=== PATIENT | female | born 1995 | race African-American/Black ===

== ENCOUNTER 2022-05-31 15:58 | Emergency (ER) | payer SELFPAY ==
[2022-05-31] MEDS ORDERED: Dexamethasone 10 MG/ML VIAL ONE (17:14)
[2022-05-31 18:03] LABS: SARS-CoV-2 NAA Rapid Test Not Detected (NotDetected)
== END 2022-05-31 18:32 | disposition home or self-care (01) ==
LOC: CSHERS 15:58
DX: J02.9 Acute pharyngitis, unspecified (principal); Z20.822 Contact with and (suspected) exposure to COVID-19
CPT/HCPCS: 87081; 87430; 99283; J1100

== ENCOUNTER 2023-02-11 11:52 | Day surgery (SDC) | payer OTHER, SELFPAY ==
[2023-02-11 13:23] VITALS: BMI 27.8
[2023-02-11] MEDS ORDERED: hydrALAZINE 20 MG/ML VIAL SLOW IVP PRN (13:59)
[2023-02-11 14:06] LABS: Bilirubin Neg (Negative); Blood, Urine 10 (Negative); Clarity Clear (Clear); Glucose, Urine (Dipstick) Normal (Negative); Ketone, Urine Negative (Negative); Leukocyte Negative (Negative); Nitrite Negative (Negative); Protein, Urine (Dipstick) Negative (Neg-Trace); Urobilinogen Normal mg/dL (Less than 2)
[2023-02-11] MEDS ORDERED: Ondansetron PF 4 MG/2 ML Vial IVP SCH (14:15)
[2023-02-11] MEDS ORDERED: Acetaminophen 500 MG TAB PO SCH ×2 (14:15→17:30)
[2023-02-11] MEDS ORDERED: Lactated Ringer's 1,000 ML IV SCH (14:15)
[2023-02-11 14:20] LABS: Amphetamine Not Detected (NotDetected); Barbiturates Screen Not Detected (NotDetected); Benzodiazepine Screen Not Detected (NotDetected); CAUTI Indications for Culture Pregnancy; Cocaine Metabolite Screen Not Detected (NotDetected); Methadone Not Detected (NotDetected); Methamphetamine Not Detected (NotDetected); Opiate Screen Not Detected (NotDetected); Oxycodone Screen Not Detected (NotDetected); Phencyclidine (PCP) Not Detected (NotDetected); RBC/HPF 0-3 HPF (0-3); Squamous Epithelial 0-3 HPF (0-3); THC/Cannabinoid Screen Not Detected (NotDetected); Tricyclic Screen Not Detected (NotDetected); WBC/HPF 0-3 HPF (0-3)
[2023-02-11 14:21] LABS: Bacteria/HPF Rare-Few HPF (None Seen)
[2023-02-11 14:23] LABS: Urine Culture Reflex Yes Yes
[2023-02-11 14:31] LABS: #Eosinphils 0.1 10x3/uL (0.0-0.5); #Neutrophils 4.1 10x3/uL (1.5-8.4); %Basophils 0.3 % (0.0-2.0); %Eosinophils 0.9 % (0.0-6.0); %Monocytes 17.1 % (0.0-10.0); Hemoglobin 12.1 g/dL (12.0-15.5); Mean Corpuscular Hemoglobin 30.8 pg (27.0-33.0); Mean Corpuscular Volume 90.6 fl (81.6-98.3); Mean Platelet Volume 10.5 fl (7.4-10.4); Platelet Count 153 10x3/uL (150-450); RBC Distribution Width 12.9 % (11.5-14.5); Red Blood Cell (RBC) Count 3.93 10x6/uL (3.90-5.03); White Blood Cell (WBC) Count 5.8 10x3/uL (3.5-10.5)
[2023-02-11 14:46] LABS: ALT (SGPT) 11 U/L (8-55); AST (SGOT) 15 U/L (5-34); Albumin 3.7 g/dL (3.5-5.0); Alkaline Phosphatase 56 U/L (40-110); Anion Gap 12 mmol/L (10-20); BUN (Urea Nitrogen) 4 mg/dL (7.0-18.7); Bilirubin, Total 0.4 mg/dL (0.2-1.2); Calc. Creatinine Clearance 144 mL/min (70-130); Calcium 8.8 mg/dL (7.8-10.44); Carbon Dioxide 22 mmol/L (22-29); Chloride 107 mmol/L (98-107); Estimated GFR 118; Globulin 2.7 g/dL (2.4-3.5); Glucose 79 mg/dL (70-105); Potassium 3.8 mmol/L (3.5-5.1); Protein, Total 6.4 g/dL (6.0-8.3); Sodium 137 mmol/L (136-145)
== END 2023-02-11 17:50 | disposition home or self-care (01) ==
LOC: CSHERS 11:52 → CSHLD/OP 12:49
PROVIDERS: ATTEND Obstetrics & Gynecology
DX: O23.42 Unspecified infection of urinary tract in pregnancy, second trimester (principal); N39.0 Urinary tract infection, site not specified; O99.282 Endocrine, nutritional and metabolic diseases complicating pregnancy, second trimester; E86.0 Dehydration; O99.891 Other specified diseases and conditions complicating pregnancy; R10.30 Lower abdominal pain, unspecified; Z3A.19 19 weeks gestation of pregnancy; Z79.82 Long term (current) use of aspirin; Z87.891 Personal history of nicotine dependence; Z91.041 Radiographic dye allergy status; Z91.018 Allergy to other foods
CPT/HCPCS: 76815; 80053; 80306; 81001; 85025; 87086; 87480; 87510; 87660; 96360; 96361; 96375; 99281; 99283; J2405

== ENCOUNTER 2023-05-13 19:27 | Day surgery (SDC) | payer OTHER ==
[2023-05-13] MEDS ORDERED: hydrALAZINE 20 MG/ML VIAL SLOW IVP PRN (20:26)
[2023-05-13] MEDS ORDERED: Ondansetron PF 4 MG/2 ML Vial IVP PRN (20:27)
[2023-05-13] MEDS ORDERED: Morphine 4 MG/ML VIAL SLOW IVP SCH ×2 (20:45→22:45)
[2023-05-13 20:48] VITALS: BMI 30.2
[2023-05-13 21:14] LABS: Bilirubin Neg (Negative); Blood, Urine 10 (Negative); Clarity Clear (Clear); Glucose, Urine (Dipstick) Normal (Negative); Ketone, Urine Negative (Negative); Leukocyte 25 (Negative); Nitrite Negative (Negative); Protein, Urine (Dipstick) 15 mg/dl (Neg-Trace); pH, Urine 6.5 (5.0-9.0)
[2023-05-13 21:19] LABS: #Eosinphils 0.2 10x3/uL (0.0-0.5); #Monocytes 0.8 10x3/uL (0.0-1.1); #Neutrophils 6.2 10x3/uL (1.5-8.4); %Basophils 0.2 % (0.0-2.0); %Eosinophils 1.8 % (0.0-6.0); %Monocytes 7.9 % (0.0-10.0); %Neutrophils 62.3 % (40.0-75.0); Hematocrit 35.3 % (34.9-44.5); Hemoglobin 12.1 g/dL (12.0-15.5); Mean Corpuscular HGB CONC 34.3 g/dL (32.0-36.0); Mean Corpuscular Hemoglobin 31.7 pg (27.0-33.0); Mean Corpuscular Volume 92.4 fl (81.6-98.3); Mean Platelet Volume 11.1 fl (7.4-10.4); Platelet Count 186 10x3/uL (150-450); RBC Distribution Width 12.6 % (11.5-14.5); Red Blood Cell (RBC) Count 3.82 10x6/uL (3.90-5.03); White Blood Cell (WBC) Count 9.9 10x3/uL (3.5-10.5)
[2023-05-13 21:24] LABS: Bacteria/HPF Rare-Few HPF (None Seen); CAUTI Indications for Culture Pelvic or flank pain; RBC/HPF 0-3 HPF (0-3); Squamous Epithelial 0-3 HPF (0-3); Urine Culture Reflex No No; WBC/HPF 0-3 HPF (0-3)
[2023-05-13 21:41] LABS: ALT (SGPT) Less than 7 U/L (8-55); AST (SGOT) 11 U/L (5-34); Albumin 3.6 g/dL (3.5-5.0); Alkaline Phosphatase 82 U/L (40-110); Anion Gap 13 mmol/L (10-20); BUN (Urea Nitrogen) 6 mg/dL (7.0-18.7); Bilirubin, Total 0.3 mg/dL (0.2-1.2); Calc. Creatinine Clearance 153 mL/min (70-130); Calcium 9.3 mg/dL (7.8-10.44); Carbon Dioxide 20 mmol/L (22-29); Chloride 108 mmol/L (98-107); Estimated GFR 119; Globulin 2.7 g/dL (2.4-3.5); Glucose 88 mg/dL (70-105); Potassium 4.1 mmol/L (3.5-5.1); Protein, Total 6.3 g/dL (6.0-8.3); Sodium 137 mmol/L (136-145)
[2023-05-13] MEDS ORDERED: Terbutaline Sulfate 1 MG/ML VIAL ONE (22:54)
[2023-05-13] MEDS ORDERED: Terbutaline Sulfate 1 MG/ML VIAL SC SCH (23:00)
== END 2023-05-14 00:40 | disposition home or self-care (01) ==
LOC: CSHLD/OP 19:27
PROVIDERS: ATTEND Family Medicine
DX: O47.03 False labor before 37 completed weeks of gestation, third trimester (principal); O98.313 Other infections with a predominantly sexual mode of transmission complicating pregnancy, third trimester; A56.02 Chlamydial vulvovaginitis; Z87.59 Personal history of other complications of pregnancy, childbirth and the puerperium; Z90.49 Acquired absence of other specified parts of digestive tract; Z98.890 Other specified postprocedural states; Z79.899 Other long term (current) drug therapy; Z91.018 Allergy to other foods; Z91.041 Radiographic dye allergy status; Z3A.32 32 weeks gestation of pregnancy
CPT/HCPCS: 76770; 76815; 80053; 81001; 85025; 87086; J2270; J2405; J3105

== ENCOUNTER 2023-06-15 12:45 | Day surgery (SDC) | payer OTHER ==
[2023-06-15] MEDS ORDERED: hydrALAZINE 20 MG/ML VIAL SLOW IVP PRN (16:37)
== END 2023-06-15 16:20 | disposition home or self-care (01) ==
LOC: CSHLD/OP 12:45
PROVIDERS: ATTEND Family Medicine
DX: O47.03 False labor before 37 completed weeks of gestation, third trimester (principal); O34.211 Maternal care for low transverse scar from previous cesarean delivery; Z79.82 Long term (current) use of aspirin; Z79.899 Other long term (current) drug therapy; Z3A.36 36 weeks gestation of pregnancy
CPT/HCPCS: 99282

== ENCOUNTER 2023-06-30 05:32 | Inpatient (IN) | payer OTHER ==
[2023-06-29 11:20] LABS: Hematocrit 38.4 % (34.9-44.5); Platelet Count 184 10x3/uL (150-450)
[2023-06-29 11:34] LABS: Syphilis Antibody Nonreactive (Nonreactive); Syphilis Antibody Index 0.05 S/CO (<1.00 Non-Reactive)
[2023-06-29 11:35] LABS: HBSAg Index 0.18 S/CO (0-0.99); Hep B Surf Ag Non-Reactive S/CO (NonReactive)
[2023-06-30] MEDS ORDERED: Famotidine/PF 20 mg/2ml Vial SLOW IVP PRN (06:07)
[2023-06-30] MEDS ORDERED: Bicitra 30 ML UDCUP PO PRN (06:07)
[2023-06-30] MEDS ORDERED: Promethazine HCl 25 MG/ML VIAL IM PRN ×3 (06:07→10:30)
[2023-06-30] MEDS ORDERED: Diphenoxylate HCl/Atropine Tablet PO PRN (06:07)
[2023-06-30] MEDS ORDERED: Ondansetron PF 4 MG/2 ML Vial IVP PRN ×4 (06:07→10:30)
[2023-06-30] MEDS ORDERED: hydrALAZINE 20 MG/ML VIAL SLOW IVP PRN ×2 (06:07→10:30)
[2023-06-30] MEDS ORDERED: Misoprostol 200 MCG TAB PR PRN (06:07)
[2023-06-30] MEDS ORDERED: CEFAZOLIN 2 GM in Sodium Chloride 0.9% 100 ML IVPB SCH (06:07)
[2023-06-30] MEDS ORDERED: Carboprost 250 MCG/ML AMP IM PRN (06:07)
[2023-06-30] MEDS ORDERED: Lactated Ringer's 1,000 ML IV SCH (06:07)
[2023-06-30] MEDS ORDERED: Oxytocin 30 units/NS 500 ML 500 ML IV SCH (06:07)
[2023-06-30] MEDS ORDERED: Methylergonovine 0.2 MG/ML VIAL IM PRN (06:07)
[2023-06-30] MEDS ORDERED: Tranexamic Acid 1,000 MG/10 ML VIAL IVP PRN (06:07)
[2023-06-30 06:10] VITALS: BMI 30.4
[2023-06-30] MEDS ORDERED: Morphine PF 10 MG/10 ML VIAL ONE (07:23)
[2023-06-30] MEDS ORDERED: Dexmedetomidine 200 MCG/2 ML VIAL ONE (07:23)
[2023-06-30] MEDS ORDERED: Phenylephrine 40 MG/NS 250 ML 250 ML ONE (07:24)
[2023-06-30] MEDS ORDERED: Sodium Bicarbonate 2.5 MEQ/5 ML VIAL ONE (07:24)
[2023-06-30] MEDS ORDERED: Ondansetron PF 4 MG/2 ML Vial ONE (07:42)
[2023-06-30] MEDS ORDERED: Dexamethasone 4 mg/ml Vial ONE (07:42)
[2023-06-30] MEDS ORDERED: Ketorolac Tromethamine 30 MG/ML VIAL ONE (07:46)
[2023-06-30] MEDS ORDERED: Oxytocin 10 UNITS/ML VIAL ONE ×2 (07:48→08:18)
[2023-06-30] MEDS ORDERED: Midazolam HCl 2 mg/2 ml Vial ONE (07:53)
[2023-06-30 08:18] LABS: Analyzer IN Cardio CS NICU; RapidComm Collect By CBN
[2023-06-30 08:21] LABS: Analyzer IN Cardio CS NICU; RapidComm Collect By CBN; pH (Cord, venous) 7.143 (7.250-7.350)
[2023-06-30] MEDS ORDERED: Naloxone HCl 0.4 mg/ml Vial IV PRN (08:28)
[2023-06-30] MEDS ORDERED: Meperidine HCl/PF 25 MG/ML VIAL SLOW IVP PRN (08:28)
[2023-06-30] MEDS ORDERED: Moisturizing Cream (Eucerin) 113 GM JAR TOP PRN (08:28)
[2023-06-30] MEDS ORDERED: fentaNYL 50 mcg/mL 1 mL Vial SLOW IVP PRN (08:28)
[2023-06-30] MEDS ORDERED: Naloxone HCl 0.4 mg/ml Vial IVP PRN ×2 (08:28)
[2023-06-30] MEDS ORDERED: Promethazine HCl 25 MG SUPP PR PRN (08:28)
[2023-06-30] MEDS ORDERED: diphenhydrAMINE 50 MG/ML VIAL IVP PRN (08:28)
[2023-06-30] MEDS ORDERED: Communication Order-Pharmacy FS SCH (08:30)
[2023-06-30] MEDS ORDERED: Meperidine HCl/PF 25 MG/ML VIAL IM PRN (10:30)
[2023-06-30] MEDS ORDERED: diphenhydrAMINE 25 MG CAP PO PRN (10:30)
[2023-06-30] MEDS ORDERED: HYDROcodone/Acetaminophen 5/325 mg Tablet PO PRN (10:30)
[2023-06-30] MEDS ORDERED: Boostrix 0.5 ML (Tdap) VIAL (>/=7 yrs of age) IM ONE (10:30)
[2023-06-30] MEDS ORDERED: Ferrous Sulfate 325 MG TAB PO SCH (11:00)
[2023-06-30] MEDS ORDERED: Prenatal Vitamin 1 TAB PO SCH (11:00)
[2023-06-30] MEDS ORDERED: Ketorolac Tromethamine 30 MG/ML VIAL IVP SCH (14:00)
[2023-06-30] MEDS: Ketorolac Tromethamine 30 MG/ML VIAL IVP SCH ×2 (14:59→20:36)
[2023-06-30] MEDS: Ferrous Sulfate 325 MG TAB PO SCH (21:15)
[2023-07-01] MEDS: Ketorolac Tromethamine 30 MG/ML VIAL IVP SCH ×2 (02:16→08:29)
[2023-07-01 04:39] LABS: Hematocrit 32.3 % (34.9-44.5); Mean Corpuscular HGB CONC 34.1 g/dL (32.0-36.0); Mean Corpuscular Hemoglobin 31.7 pg (27.0-33.0); Mean Corpuscular Volume 93.1 fl (81.6-98.3); Mean Platelet Volume 11.1 fl (7.4-10.4); Platelet Count 159 10x3/uL (150-450); RBC Distribution Width 12.8 % (11.5-14.5); Red Blood Cell (RBC) Count 3.47 10x6/uL (3.90-5.03); White Blood Cell (WBC) Count 15.3 10x3/uL (3.5-10.5)
[2023-07-01] MEDS: Ferrous Sulfate 325 MG TAB PO SCH ×2 (08:04→19:32)
[2023-07-01] MEDS: Prenatal Vitamin 1 TAB PO SCH (08:29)
[2023-07-01] MEDS: HYDROcodone/Acetaminophen 5/325 mg Tablet PO PRN ×3 (10:31→18:07)
[2023-07-01] MEDS: Ibuprofen 800 MG TAB PO SCH ×2 (14:00→22:11)
[2023-07-01] MEDS: Simethicone Chewable 80 MG TAB PO PRN (16:34)
[2023-07-01] MEDS: HYDROcodone/Acetaminophen 7.5/325 mg Tablet PO PRN (22:12)
[2023-07-02] MEDS: HYDROcodone/Acetaminophen 7.5/325 mg Tablet PO PRN ×6 (02:23→22:04)
[2023-07-02] MEDS: Ibuprofen 800 MG TAB PO SCH ×3 (05:54→22:03)
[2023-07-02] MEDS: Prenatal Vitamin 1 TAB PO SCH (10:06)
[2023-07-02] MEDS: Simethicone Chewable 80 MG TAB PO PRN ×3 (10:09→18:06)
[2023-07-02] MEDS: Ferrous Sulfate 325 MG TAB PO SCH ×2 (15:14→20:45)
[2023-07-03] MEDS: HYDROcodone/Acetaminophen 7.5/325 mg Tablet PO PRN ×6 (02:01→22:20)
[2023-07-03] MEDS: Ibuprofen 800 MG TAB PO SCH ×3 (05:55→20:52)
[2023-07-03] MEDS: Ferrous Sulfate 325 MG TAB PO SCH ×2 (10:01→19:02)
[2023-07-03] MEDS: Simethicone Chewable 80 MG TAB PO PRN (10:02)
[2023-07-03] MEDS: Prenatal Vitamin 1 TAB PO SCH (10:02)
[2023-07-04] MEDS: HYDROcodone/Acetaminophen 7.5/325 mg Tablet PO PRN ×3 (03:05→11:15)
[2023-07-04] MEDS: Ibuprofen 800 MG TAB PO SCH (05:19)
[2023-07-04] MEDS: Ferrous Sulfate 325 MG TAB PO SCH (07:22)
[2023-07-04] MEDS: Prenatal Vitamin 1 TAB PO SCH (07:32)
[2023-07-04 07:51] VITALS: BP 124/66; TEMP 98.2
== END 2023-07-04 12:00 | disposition home or self-care (01) | DRG 788 ==
LOC: CSHLD 05:32 → CSHPP 10:43
PROVIDERS: ADMIT Family Medicine; ATTEND Family Medicine
PROC: 10D00Z1 Extraction of Products of Conception, Low, Open Approach (ICD-10-PCS; principal; 2023-06-30)
DX: O34.211 Maternal care for low transverse scar from previous cesarean delivery (principal); Z3A.39 39 weeks gestation of pregnancy; Z37.0 Single live birth; Z91.041 Radiographic dye allergy status; Z91.018 Allergy to other foods
CPT/HCPCS: 36415; 51702; 82805; 85014; 85018; 85027; 85049; 86780; 86850; 86900; 86901; 87340; J1100; J1885; J2250; J2274; J2405; J2550; J2590; J3010; J3490

== ENCOUNTER 2025-03-20 16:02 | Emergency (ER) | payer OTHER ==
[2025-03-20 17:17] LABS: #Basophils Less than 0.03 10x3/uL (0.0-0.2); #Eosinophils 0.13 10x3/uL (0.0-0.5); #Monocytes 0.49 10x3/uL (0.0-1.1); #Neutrophils 4.28 10x3/uL (1.5-8.4); %Basophils 0.1 % (0.0-2.0); %Eosinophils 1.8 % (0.0-6.0); %Lymphocytes 31.8 % (18.0-47.0); %Monocytes 6.8 % (0.0-10.0); %Neutrophils 59.2 % (40.0-75.0); Hematocrit 38.5 % (34.9-44.5); Hemoglobin 12.8 g/dL (12.0-15.5); Mean Corpuscular Hemoglobin 29.4 pg (27.0-33.0); Mean Corpuscular Volume 88.5 fL (81.6-98.3); Platelet Count 194 10x3/uL (150-450); Red Blood Cell (RBC) Count 4.35 10x6/uL (3.90-5.03); White Blood Cell (WBC) Count 7.23 10x3/uL (3.5-10.5)
[2025-03-20 17:37] LABS: ALT (SGPT) Less than 7 U/L (Less than 34); AST (SGOT) 17 U/L (11-34); Albumin 3.8 g/dL (3.1-4.5); Alkaline Phosphatase 41 U/L (40-110); Anion Gap 10 mmol/L (10-20); BUN (Urea Nitrogen) 6 mg/dL (7.0-18.7); Bilirubin, Total 0.7 mg/dL (0.3-1.2); Calc. Creatinine Clearance 0 mL/min (70-130); Calcium 8.9 mg/dL (7.8-10.44); Carbon Dioxide 21 mmol/L (22-29); Chloride 108 mmol/L (98-107); Globulin 2.8 g/dL (2.4-3.5); Glucose 117 mg/dL (70-105); Potassium 3.2 mmol/L (3.5-5.1); Sodium 136 mmol/L (136-145)
[2025-03-20] MEDS ORDERED: Ondansetron PF 4 MG/2 ML Vial ONE (18:03)
== END 2025-03-20 19:59 | disposition home or self-care (01) ==
LOC: CSHERS 16:02
DX: O99.891 Other specified diseases and conditions complicating pregnancy (principal); R42 Dizziness and giddiness; R11.0 Nausea; R29.700 NIHSS score 0; O99.281 Endocrine, nutritional and metabolic diseases complicating pregnancy, first trimester; E87.6 Hypokalemia; O99.331 Smoking (tobacco) complicating pregnancy, first trimester; F17.290 Nicotine dependence, other tobacco product, uncomplicated; Z3A.08 8 weeks gestation of pregnancy
CPT/HCPCS: 80053; 85025; 93005; 96374; J2405